=== PATIENT | male | born 1955 | race African-American/Black ===

== ENCOUNTER 2017-05-14 19:50 | Emergency (ER) | payer OTHER ==
[~2017-05-14] VITALS: Ht 194.3 cm; Wt 95.5 kg
[2017-05-14] MEDS ORDERED: [UNRECOGNIZED DRUG - REMARK] OU (19:54)
[2017-05-14] MEDS ORDERED: BACITRACIN 0.9 GM PACKET OINTMENT TP ONE (20:15)
[2017-05-14] MEDS ORDERED: PERTUSS(ACELL),DIPH,TET VAC/PF 0.5 ML VIAL IM ONE (20:15)
[2017-05-14 20:29] VITALS: BP 133/81
== END 2017-05-14 20:53 | disposition home or self-care (01) ==
LOC: EMS 19:52
DX: S50.312A Abrasion of left elbow, initial encounter (principal); S80.211A Abrasion, right knee, initial encounter; F17.210 Nicotine dependence, cigarettes, uncomplicated; V29.49XA Motorcycle driver injured in collision with other motor vehicles in traffic accident, initial encounter; Y93.55 Activity, bike riding; Y92.89 Other specified places as the place of occurrence of the external cause; Y99.8 Other external cause status
CPT/HCPCS: 90471; 90715; 99284; 99406

== ENCOUNTER 2017-05-17 16:58 | Emergency (ER) | payer OTHER ==
[~2017-05-17] VITALS: Ht 194.3 cm; Wt 95.5 kg
[~2017-05-17 16:58] MED LIST: [UNRECOGNIZED DRUG - REMARK] OU
[2017-05-17] MEDS ORDERED: IBUPROFEN 800 MG TABLET PO ONE (20:15)
[2017-05-17 21:00] VITALS: BP 159/79
== END 2017-05-17 21:00 | disposition home or self-care (01) ==
LOC: EMS 17:00
DX: S60.222A Contusion of left hand, initial encounter (principal); F17.210 Nicotine dependence, cigarettes, uncomplicated; V19.49XA Pedal cycle driver injured in collision with other motor vehicles in traffic accident, initial encounter; Y93.89 Activity, other specified; Y92.89 Other specified places as the place of occurrence of the external cause; Y99.8 Other external cause status
CPT/HCPCS: 99284